=== PATIENT | male | born 1960 | race African-American/Black ===

== ENCOUNTER 2016-10-22 06:09 | Inpatient (IN) | payer MEDICARE, MEDICAID ==
[~2016-10-22] VITALS: Ht 170.2 cm; Wt 62.6 kg
[2016-10-22] MEDS ORDERED: AMLO2.5T45 PO (06:17)
[2016-10-22] MEDS ORDERED: MORP15TA67 PO (06:18)
[2016-10-22] MEDS ORDERED: ONDANSETRON HCL 4MG/2ML VIAL IV STA (06:23)
[2016-10-22] MEDS ORDERED: MORPHINE SULFATE 4 MG/ML CPJ (NOT FOR IM USE) IV STA (06:23)
[2016-10-22] MEDS ORDERED: SODIUM CHLORIDE 0.9% 1,000 ML IV ONE (06:27)
[2016-10-22 06:56] LABS: HEMATOCRIT. 23.4 % (42.0-52.0); HEMOGLOBIN. 7.5 g/dL (14.0-18.0); MEAN CORPUSCULAR VOLUME 81.4 fL (80.0-94.0); PLATELET 732 x1000/uL (130-400); RED BLOOD CELL COUNT 2.87 mill/uL (4.7-6.1); RED CELL DISTRIBUTION WIDTH 18.5 % (11.6-14.6)
[2016-10-22 07:01] LABS: INR 1.1; PARTIAL THROMBOPLASTIN TIME 28.1 sec (24.0-34.0)
[2016-10-22 07:06] LABS: CARBON DIOXIDE 28 mEq/L (21-32); CHLORIDE 106 mEq/L (98-107); TROPONIN I < 0.02 ng/mL (0.00-0.04)
[2016-10-22] MEDS ORDERED: LEVOFLOXACIN 750MG PREMIX 150 ML IV ONE (07:15)
[2016-10-22 07:28] LABS: PLATELET ESTIMATE INCREASED
[2016-10-22] MEDS ORDERED: CLONIDINE 0.1MG TABLET PO PRN (09:45)
[2016-10-22] MEDS ORDERED: IPRATROPIUM/ALBUTEROL 0.5-3(2.5)MG/3ML NEB INH PRN (09:45)
[2016-10-22] MEDS ORDERED: LORAZEPAM 2MG/ML CPJ IV PRN (09:45)
[2016-10-22] MEDS ORDERED: NA PHOS,M-B/NA PHOS,DI-BA ENEMA 118ML PR PRN (09:45)
[2016-10-22] MEDS ORDERED: HYDROCODONE/ACETAMINOPHEN 5/325MG TABLET PO PRN (09:45)
[2016-10-22] MEDS ORDERED: FUROSEMIDE 20MG/2ML VIAL IVP SCH (09:45)
[2016-10-22] MEDS ORDERED: ONDANSETRON HCL 4MG/2ML VIAL IV PRN (09:45)
[2016-10-22] MEDS ORDERED: DOCUSATE SODIUM 100MG CAPSULE PO PRN (09:45)
[2016-10-22] MEDS ORDERED: GUAIFENESIN 200MG/10ML SUGAR FREE UDC PO PRN (09:45)
[2016-10-22] MEDS ORDERED: MAGNESIUM/ALUMINUM HYDROXIDE/SIMETHICONE 30ML UDC PO PRN (09:45)
[2016-10-22] MEDS ORDERED: ACETAMINOPHEN 325MG TABLET PO PRN (09:45)
[2016-10-22 09:49] LABS: CLARITY URINE CLEAR (CLEAR); COLOR URINE YELLOW (YELLOW); KETONES URINE NEGATIVE (NEGATIVE); LEUKOCYTE ESTERASE URINE NEGATIVE (NEGATIVE); NITRITE URINE NEGATIVE (NEGATIVE); OCCULT BLOOD URINE NEGATIVE (NEGATIVE); PH URINE 5.5 (4.5-8.0); PROTEIN URINE NEGATIVE (NEGATIVE); SPECIFIC GRAVITY URINE 1.039 (1.005-1.030)
[2016-10-22 10:07] LABS: *AMPHETAMINES SCREEN URINE NEGATIVE (NEGATIVE); *BARBITURATES SCREEN URINE NEGATIVE (NEGATIVE); *BENZODIAZEPINES SCREEN URINE NEGATIVE (NEGATIVE); *COCAINE SCREEN URINE NEGATIVE (NEGATIVE); CANNABINOID URINE SCREEN NEGATIVE (NEGATIVE); METHADONE URINE SCREEN NEGATIVE (NEGATIVE); OPIATES URINE SCREEN PRESUMTIVE POSITIVE (NEGATIVE); PHENCYCLIDINE URINE SCREEN NEGATIVE (NEGATIVE)
[2016-10-22 11:51] LABS: CARBON DIOXIDE 30 mEq/L (21-32); CHLORIDE 105 mEq/L (98-107)
[2016-10-22] MEDS: PIPERACILLIN/TAZ 3.375G PREMIX 50 ML IV SCH ×2 (14:00→22:05)
[2016-10-22] MEDS ORDERED: SODIUM CHLORIDE 0.9% 10ML VIAL ONE (14:01)
[2016-10-22] MEDS ORDERED: IOHEXOL-300 100 ML BOTTLE ONE (14:01)
[2016-10-22] MEDS: HYDROMORPHONE HCL/PF 2MG/ML CPJ IV PRN ×2 (14:03→17:40)
[2016-10-22] MEDS: ENOXAPARIN 40MG/0.4ML SYR SUBCUT SCH (14:58)
[2016-10-23] MEDS: HYDROMORPHONE HCL/PF 2MG/ML CPJ IV PRN ×9 (00:11→22:48)
[2016-10-23] MEDS: PIPERACILLIN/TAZ 3.375G PREMIX 50 ML IV SCH ×4 (03:12→21:59)
[2016-10-23 03:30] LABS: CHLORIDE 105 mEq/L (98-107)
[2016-10-23 03:45] LABS: CARBON DIOXIDE 27 mEq/L (21-32); HDL CHOLESTEROL 28 mg/dL (40-59); LDL CHOLESTEROL 75 mg/dL (5-100); T4 FREE 1.25 ng/dL (0.76-1.46)
[2016-10-23] MEDS: LEVOFLOXACIN 500MG PREMIX 100 ML IV SCH (08:49)
[2016-10-23] MEDS: FUROSEMIDE 40MG/4ML VIAL IV SCH (08:49)
[2016-10-23] MEDS: AMLODIPINE 2.5MG TABLET PO SCH (08:49)
[2016-10-23] MEDS: ASPIRIN 81MG EC TABLET PO SCH (08:50)
[2016-10-23 09:37] LABS: HEMATOCRIT. 30.4 % (42.0-52.0); HEMOGLOBIN. 9.9 g/dL (14.0-18.0); MEAN CORPUSCULAR HEMOGLOBIN 27.3 pg (28.0-32.0); MEAN CORPUSCULAR VOLUME 83.8 fL (80.0-94.0); MEAN PLATELET VOLUME 6.9 fl (7.4-10.4); PLATELET 755 x1000/uL (130-400); RED BLOOD CELL COUNT 3.63 mill/uL (4.7-6.1); RED CELL DISTRIBUTION WIDTH 17.8 % (11.6-14.6)
[2016-10-23 09:50] LABS: T4 FREE 1.27 ng/dL (0.76-1.46)
[2016-10-23] MEDS ORDERED: SODIUM CHLORIDE 0.9% 10ML VIAL ONE (10:21)
[2016-10-23] MEDS ORDERED: IOHEXOL-350 100 ML BOTTLE ONE (10:21)
[2016-10-23 11:13] LABS: PLATELET ESTIMATE INCREASED
[2016-10-23] MEDS: ENOXAPARIN 40MG/0.4ML SYR SUBCUT SCH (12:00)
[2016-10-23 16:06] LABS: CREATINE KINASE 27 IU/L (39-308); TROPONIN I < 0.02 ng/mL (0.00-0.04)
[2016-10-23 16:07] LABS: CREATINE KINASE MB FRACTION 0.5 ng/mL (0.5-3.6)
[2016-10-23] MEDS: ENOXAPARIN 80MG/0.8ML SYR SUBCUT SCH (20:54)
[2016-10-24 00:15] LABS: CREATINE KINASE 25 IU/L (39-308); CREATINE KINASE MB FRACTION < 0.5 ng/mL (0.5-3.6); TROPONIN I < 0.02 ng/mL (0.00-0.04)
[2016-10-24] MEDS: HYDROMORPHONE HCL/PF 2MG/ML CPJ IV PRN ×11 (01:21→22:23)
[2016-10-24] MEDS: PIPERACILLIN/TAZ 3.375G PREMIX 50 ML IV SCH ×4 (04:36→21:48)
[2016-10-24 06:50] LABS: CREATINE KINASE 25 IU/L (39-308); CREATINE KINASE MB FRACTION < 0.5 ng/mL (0.5-3.6); TROPONIN I < 0.02 ng/mL (0.00-0.04)
[2016-10-24 07:12] LABS: HEMATOCRIT. 27.5 % (42.0-52.0); HEMOGLOBIN. 8.9 g/dL (14.0-18.0); MEAN CORPUSCULAR HEMOGLOBIN 27.1 pg (28.0-32.0); MEAN CORPUSCULAR VOLUME 83.4 fL (80.0-94.0); MEAN PLATELET VOLUME 7.2 fl (7.4-10.4); PLATELET 846 x1000/uL (130-400); RED BLOOD CELL COUNT 3.29 mill/uL (4.7-6.1); RED CELL DISTRIBUTION WIDTH 17.9 % (11.6-14.6)
[2016-10-24] MEDS: FUROSEMIDE 40MG/4ML VIAL IV SCH (09:34)
[2016-10-24] MEDS: ASPIRIN 81MG EC TABLET PO SCH (09:34)
[2016-10-24] MEDS: AMLODIPINE 2.5MG TABLET PO SCH (09:35)
[2016-10-24] MEDS: ENOXAPARIN 80MG/0.8ML SYR SUBCUT SCH ×2 (09:44→21:49)
[2016-10-24 09:54] LABS: PLATELET ESTIMATE MARKEDLY INCREASED
[2016-10-24] MEDS: LEVOFLOXACIN 500MG PREMIX 100 ML IV SCH (11:05)
[2016-10-25] MEDS: HYDROMORPHONE HCL/PF 2MG/ML CPJ IV PRN ×12 (00:04→22:14)
[2016-10-25] MEDS: PIPERACILLIN/TAZ 3.375G PREMIX 50 ML IV SCH ×5 (03:56→22:17)
[2016-10-25 07:06] LABS: HEMATOCRIT. 28.6 % (42.0-52.0); HEMOGLOBIN. 9.3 g/dL (14.0-18.0); MEAN CORPUSCULAR HEMOGLOBIN 27.2 pg (28.0-32.0); MEAN CORPUSCULAR VOLUME 83.6 fL (80.0-94.0); MEAN PLATELET VOLUME 7.3 fl (7.4-10.4); PLATELET 928 x1000/uL (130-400); RED BLOOD CELL COUNT 3.43 mill/uL (4.7-6.1); RED CELL DISTRIBUTION WIDTH 17.8 % (11.6-14.6)
[2016-10-25 07:07] LABS: CHLORIDE 101 mEq/L (98-107)
[2016-10-25 07:22] LABS: CARBON DIOXIDE 28 mEq/L (21-32)
[2016-10-25] MEDS: AMLODIPINE 2.5MG TABLET PO SCH (09:59)
[2016-10-25] MEDS: ASPIRIN 81MG EC TABLET PO SCH (09:59)
[2016-10-25] MEDS: FUROSEMIDE 40MG/4ML VIAL IV SCH (09:59)
[2016-10-25] MEDS: ENOXAPARIN 80MG/0.8ML SYR SUBCUT SCH ×2 (10:00→22:19)
[2016-10-26] MEDS: HYDROMORPHONE HCL/PF 2MG/ML CPJ IV PRN ×11 (00:21→22:01)
[2016-10-26] MEDS: PIPERACILLIN/TAZ 3.375G PREMIX 50 ML IV SCH ×3 (04:28→18:05)
[2016-10-26 07:20] LABS: HEMATOCRIT. 30.5 % (42.0-52.0); HEMOGLOBIN. 9.7 g/dL (14.0-18.0); MEAN CORPUSCULAR HEMOGLOBIN 26.3 pg (28.0-32.0); MEAN PLATELET VOLUME 6.9 fl (7.4-10.4); PLATELET 955 x1000/uL (130-400); RED BLOOD CELL COUNT 3.68 mill/uL (4.7-6.1); RED CELL DISTRIBUTION WIDTH 18.2 % (11.6-14.6)
[2016-10-26 07:36] LABS: CARBON DIOXIDE 27 mEq/L (21-32); CHLORIDE 102 mEq/L (98-107)
[2016-10-26 07:54] LABS: PLATELET ESTIMATE MARKEDLY INCREASED
[2016-10-26] MEDS: FUROSEMIDE 40MG/4ML VIAL IV SCH (08:40)
[2016-10-26] MEDS: ASPIRIN 81MG EC TABLET PO SCH (08:40)
[2016-10-26] MEDS: AMLODIPINE 2.5MG TABLET PO SCH (08:41)
[2016-10-26] MEDS: ENOXAPARIN 80MG/0.8ML SYR SUBCUT SCH ×2 (08:42→20:06)
[2016-10-26 10:25] LABS: PLATELET ESTIMATE MARKEDLY INCREASED
[2016-10-27] MEDS: HYDROMORPHONE HCL/PF 2MG/ML CPJ IV PRN ×5 (00:40→08:57)
[2016-10-27] MEDS: PIPERACILLIN/TAZ 3.375G PREMIX 50 ML IV SCH ×2 (00:40→05:01)
[2016-10-27 06:47] LABS: CARBON DIOXIDE 29 mEq/L (21-32); CHLORIDE 101 mEq/L (98-107)
[2016-10-27 07:08] LABS: HEMATOCRIT. 30.8 % (42.0-52.0); MEAN CORPUSCULAR HEMOGLOBIN 26.9 pg (28.0-32.0); MEAN CORPUSCULAR VOLUME 83.1 fL (80.0-94.0); MEAN PLATELET VOLUME 7.3 fl (7.4-10.4); PLATELET 934 x1000/uL (130-400); RED BLOOD CELL COUNT 3.71 mill/uL (4.7-6.1); RED CELL DISTRIBUTION WIDTH 17.5 % (11.6-14.6)
[2016-10-27] MEDS: AMLODIPINE 2.5MG TABLET PO SCH (08:28)
[2016-10-27] MEDS: FUROSEMIDE 40MG/4ML VIAL IV SCH (08:29)
[2016-10-27] MEDS: ASPIRIN 81MG EC TABLET PO SCH (08:29)
[2016-10-27] MEDS: ENOXAPARIN 80MG/0.8ML SYR SUBCUT SCH (08:37)
[2016-10-27] MEDS ORDERED: HYDROCODONE/ACETAMINOPHEN 5/325MG TABLET PO PRN (11:15)
[2016-10-27] MEDS ORDERED: HYDROMORPHONE HCL/PF 2MG/ML CPJ IV NR (11:15)
[2016-10-27 13:24] VITALS: BP 117/82
[2016-10-27 13:37] LABS: PLATELET ESTIMATE MARKEDLY INCREASED
[2016-10-27] MEDS ORDERED: ENOXAPARIN 60MG/0.6ML SYR SUBCUT SCH (21:00)
[2016-12-10] MEDS ORDERED: ATROPINE PO (00:44)
[2016-12-10] MEDS ORDERED: LEVO500T89 PO (00:44)
[2016-12-10] MEDS ORDERED: LORA1TAB PO (00:44)
[2016-12-10] MEDS ORDERED: HYDR4TAB4 PO (00:44)
[2016-12-10] MEDS ORDERED: DOCU-138 PO (01:07)
== END 2016-10-27 13:30 | disposition home or self-care (01) | DRG 871 ==
LOC: ER 06:20 → 6WST 08:41 → EDBEDREQ 08:43 → ENRESERV 08:46 → CANRESERV 08:47 → 6WST 10-25 23:30
PROVIDERS: ADMIT Internal Medicine; ATTEND Internal Medicine
PROC: 30233N1 Transfusion of Nonautologous Red Blood Cells into Peripheral Vein, Percutaneous Approach (ICD-10-PCS; principal; 2016-10-23)
DX: A41.9 Sepsis, unspecified organism (principal); J96.00 Acute respiratory failure, unspecified whether with hypoxia or hypercapnia; E43 Unspecified severe protein-calorie malnutrition; I26.99 Other pulmonary embolism without acute cor pulmonale; J18.9 Pneumonia, unspecified organism; C34.90 Malignant neoplasm of unspecified part of unspecified bronchus or lung; C78.7 Secondary malignant neoplasm of liver and intrahepatic bile duct; I82.409 Acute embolism and thrombosis of unspecified deep veins of unspecified lower extremity; R65.10 Systemic inflammatory response syndrome (SIRS) of non-infectious origin without acute organ dysfunction; M19.90 Unspecified osteoarthritis, unspecified site; I27.2 Other secondary pulmonary hypertension; I25.10 Atherosclerotic heart disease of native coronary artery without angina pectoris; I50.9 Heart failure, unspecified; I11.0 Hypertensive heart disease with heart failure; R16.0 Hepatomegaly, not elsewhere classified; E78.00 Pure hypercholesterolemia, unspecified; D47.3 Essential (hemorrhagic) thrombocythemia; D64.9 Anemia, unspecified; Z60.2 Problems related to living alone; K59.00 Constipation, unspecified; Z82.61 Family history of arthritis; Z92.3 Personal history of irradiation; Z68.25 Body mass index [BMI] 25.0-25.9, adult; Z87.891 Personal history of nicotine dependence; Z92.21 Personal history of antineoplastic chemotherapy; Z85.819 Personal history of malignant neoplasm of unspecified site of lip, oral cavity, and pharynx; Z83.3 Family history of diabetes mellitus; Z79.899 Other long term (current) drug therapy; Z88.8 Allergy status to other drugs, medicaments and biological substances; Z79.01 Long term (current) use of anticoagulants; Z68.21 Body mass index [BMI] 21.0-21.9, adult
CPT/HCPCS: 36415; 71010; 71260; 71275; 73562; 74177; 80048; 80053; 80061; 80305; 81003; 82550; 82553; 83036; 83605; 83690; 83880; 84439; 84443; 84484; 85025; 85379; 85610; 85730; 86850; 86900; 86920; 87040; 87086; 93005; 93306; 93970; 96365; 96375; 99291; A4216; J1170; J1650; J1940; J1956; J2270; J2405; J2543; J7030; J7050; P9016; Q9967

== ENCOUNTER 2016-11-18 07:38 | Inpatient (IN) | payer MEDICARE, MEDICAID ==
[~2016-11-18] VITALS: Ht 165.1 cm; Wt 60.5 kg
[~2016-11-18 07:38] MED LIST: AMLO2.5T45 PO; MORP15TA67 PO
[2016-11-18 13:10] VITALS: BP 123/81
[2016-11-18] MEDS ORDERED: IPRATROPIUM/ALBUTEROL 0.5-3(2.5)MG/3ML NEB HHN PRN (15:00)
[2016-11-18] MEDS ORDERED: ONDANSETRON HCL 4MG/2ML VIAL IV PRN (15:00)
[2016-11-18] MEDS ORDERED: HYDROCODONE/ACETAMINOPHEN 10/325MG TABLET PO PRN (15:00)
[2016-11-18] MEDS ORDERED: ACETAMINOPHEN 325MG TABLET PO PRN (15:00)
[2016-11-18] MEDS ORDERED: MAGNESIUM/ALUMINUM HYDROXIDE/SIMETHICONE 30ML UDC PO PRN (15:00)
[2016-11-18] MEDS ORDERED: CLONIDINE 0.2MG TABLET PO PRN (15:00)
[2016-11-18] MEDS: SODIUM CHLORIDE 0.45% 1,000 ML IV SCH (15:37)
[2016-11-18] MEDS: HYDROMORPHONE HCL/PF 2MG/ML CPJ IV PRN ×2 (15:46→20:08)
[2016-11-18 16:00] VITALS: BP_SYST 127; BP_SYST 137; BP_DIAS 91; BP_DIAS 99
[2016-11-18 16:47] LABS: HEMATOCRIT. 29.2 % (42.0-52.0); HEMOGLOBIN. 9.3 g/dL (14.0-18.0); MEAN CORPUSCULAR HEMOGLOBIN 26.3 pg (28.0-32.0); MEAN CORPUSCULAR VOLUME 82.6 fL (80.0-94.0); MEAN PLATELET VOLUME 8.2 fl (7.4-10.4); PLATELET 529 x1000/uL (130-400); RED BLOOD CELL COUNT 3.54 mill/uL (4.7-6.1); RED CELL DISTRIBUTION WIDTH 18.8 % (11.6-14.6)
[2016-11-18 16:53] LABS: CHLORIDE 102 mEq/L (98-107)
[2016-11-18 17:03] LABS: CARBON DIOXIDE 30 mEq/L (21-32); CREATINE KINASE 46 IU/L (39-308); CREATINE KINASE MB FRACTION 0.6 ng/mL (0.5-3.6); TROPONIN I < 0.02 ng/mL (0.00-0.04)
[2016-11-18 17:40] LABS: PLATELET ESTIMATE INCREASED
[2016-11-18] MEDS ORDERED: ENOXAPARIN 40MG/0.4ML SYR SUBCUT SCH (18:00)
[2016-11-18] MEDS ORDERED: RIVAROXABAN 15 MG TABLET PO SCH (19:15)
[2016-11-18 20:00] VITALS: BP 111/82
[2016-11-18] MEDS: LEVOFLOXACIN 500MG PREMIX 100 ML IV SCH (20:08)
[2016-11-18 21:42] LABS: INR 1.2; PROTHROMBIN TIME 12.4 sec
[2016-11-19] VITALS: BP 136/98
[2016-11-19] MEDS: HYDROMORPHONE HCL/PF 2MG/ML CPJ IV PRN ×6 (00:31→21:06)
[2016-11-19 04:00] VITALS: BP 140/96
[2016-11-19] MEDS: SODIUM CHLORIDE 0.45% 1,000 ML IV SCH ×2 (04:50→17:50)
[2016-11-19 06:35] LABS: CHLORIDE 101 mEq/L (98-107)
[2016-11-19 06:44] LABS: CARBON DIOXIDE 23 mEq/L (21-32)
[2016-11-19 06:45] LABS: CREATINE KINASE 48 IU/L (39-308); CREATINE KINASE MB FRACTION 0.6 ng/mL (0.5-3.6); TROPONIN I < 0.02 ng/mL (0.00-0.04)
[2016-11-19] MEDS: OMEPRAZOLE 20MG CAPSULE EXTENDED RELEASE PO SCH ×2 (08:22→17:50)
[2016-11-19] MEDS: AMLODIPINE 2.5MG TABLET PO SCH (08:22)
[2016-11-19 08:23] VITALS: BP 135/93
[2016-11-19 08:52] LABS: HEMATOCRIT 27.5 % (42.0-52.0); MEAN CORPUSCULAR VOLUME 82.8 fL (80.0-94.0); PLATELET 563 x1000/uL (130-400); RED BLOOD CELL COUNT 3.32 mill/uL (4.7-6.1)
[2016-11-19 11:40] VITALS: BP 110/79
[2016-11-19] MEDS ORDERED: RIVAROXABAN 20 MG TABLET PO SCH (17:00)
[2016-11-19 17:04] VITALS: BP 128/90
[2016-11-19 20:00] VITALS: BP 123/84
[2016-11-19] MEDS: LEVOFLOXACIN 500MG PREMIX 100 ML IV SCH (21:06)
[2016-11-20] VITALS: BP 126/70
[2016-11-20] MEDS: HYDROMORPHONE HCL/PF 2MG/ML CPJ IV PRN ×6 (01:04→21:16)
[2016-11-20 04:00] VITALS: BP 136/79
[2016-11-20 06:18] LABS: CHLORIDE 101 mEq/L (98-107)
[2016-11-20 06:36] LABS: HEMATOCRIT. 24.8 % (42.0-52.0); HEMOGLOBIN. 7.9 g/dL (14.0-18.0); MEAN CORPUSCULAR HEMOGLOBIN 26.3 pg (28.0-32.0); MEAN CORPUSCULAR VOLUME 82.7 fL (80.0-94.0); MEAN PLATELET VOLUME 7.9 fl (7.4-10.4); PLATELET 522 x1000/uL (130-400); RED BLOOD CELL COUNT 2.99 mill/uL (4.7-6.1); RED CELL DISTRIBUTION WIDTH 18.5 % (11.6-14.6)
[2016-11-20] MEDS: SODIUM CHLORIDE 0.45% 1,000 ML IV SCH (06:43)
[2016-11-20 06:46] LABS: CARBON DIOXIDE 23 mEq/L (21-32)
[2016-11-20 07:16] VITALS: BP 134/90
[2016-11-20] MEDS: OMEPRAZOLE 20MG CAPSULE EXTENDED RELEASE PO SCH (07:40)
[2016-11-20 07:53] LABS: PLATELET ESTIMATE INCREASED
[2016-11-20] MEDS: AMLODIPINE 2.5MG TABLET PO SCH (09:19)
[2016-11-20 11:17] VITALS: BP 112/75
[2016-11-20 13:35] LABS: HEMATOCRIT 26.9 % (42.0-52.0); HEMOGLOBIN 8.3 g/dL (14.0-18.0)
[2016-11-20 15:40] VITALS: BP 139/97
[2016-11-20] MEDS: LEVOFLOXACIN 500MG PREMIX 100 ML IV SCH (19:54)
[2016-11-20 20:00] VITALS: BP 109/74
[2016-11-21 00:17] VITALS: BP 126/85
[2016-11-21] MEDS: HYDROMORPHONE HCL/PF 2MG/ML CPJ IV PRN ×6 (01:19→21:04)
[2016-11-21 04:00] VITALS: BP 121/85
[2016-11-21 05:40] LABS: HEMATOCRIT. 25.8 % (42.0-52.0); HEMOGLOBIN. 8.1 g/dL (14.0-18.0); MEAN CORPUSCULAR HEMOGLOBIN 26.3 pg (28.0-32.0); MEAN CORPUSCULAR VOLUME 83.3 fL (80.0-94.0); MEAN PLATELET VOLUME 8.1 fl (7.4-10.4); PLATELET 471 x1000/uL (130-400); RED BLOOD CELL COUNT 3.09 mill/uL (4.7-6.1); RED CELL DISTRIBUTION WIDTH 18.7 % (11.6-14.6)
[2016-11-21 05:59] LABS: CARBON DIOXIDE 23 mEq/L (21-32); CHLORIDE 102 mEq/L (98-107)
[2016-11-21 08:00] VITALS: BP 153/84
[2016-11-21] MEDS: AMLODIPINE 2.5MG TABLET PO SCH (08:36)
[2016-11-21 12:00] VITALS: BP 113/72
[2016-11-21 12:57] LABS: PLATELET ESTIMATE NORMAL
[2016-11-21 16:00] VITALS: BP 125/73
[2016-11-21 20:04] VITALS: BP 107/64
[2016-11-21] MEDS: LEVOFLOXACIN 500MG PREMIX 100 ML IV SCH (21:03)
[2016-11-22] VITALS (16 sets, daily range): BP systolic 110–133; BP diastolic 72–90
[2016-11-22] MEDS: HYDROMORPHONE HCL/PF 2MG/ML CPJ IV PRN ×6 (00:58→20:33)
[2016-11-22 07:03] LABS: HEMATOCRIT. 22.2 % (42.0-52.0); MEAN CORPUSCULAR HEMOGLOBIN 25.6 pg (28.0-32.0); MEAN CORPUSCULAR VOLUME 82.5 fL (80.0-94.0); MEAN PLATELET VOLUME 7.2 fl (7.4-10.4); PLATELET 492 x1000/uL (130-400); RED BLOOD CELL COUNT 2.69 mill/uL (4.7-6.1); RED CELL DISTRIBUTION WIDTH 18.9 % (11.6-14.6)
[2016-11-22 07:15] LABS: HEMOGLOBIN. 6.9 g/dL (14.0-18.0)
[2016-11-22 07:40] LABS: CARBON DIOXIDE 29 mEq/L (21-32); CHLORIDE 102 mEq/L (98-107)
[2016-11-22] MEDS: AMLODIPINE 2.5MG TABLET PO SCH (09:00)
[2016-11-22 14:36] LABS: PLATELET ESTIMATE INCREASED
[2016-11-22] MEDS: LEVOFLOXACIN 500MG PREMIX 100 ML IV SCH (20:33)
[2016-11-23 00:05] VITALS: BP 111/77
[2016-11-23] MEDS: HYDROMORPHONE HCL/PF 2MG/ML CPJ IV PRN ×4 (00:25→13:57)
[2016-11-23 04:00] VITALS: BP 145/88
[2016-11-23 05:57] LABS: HEMATOCRIT. 28.6 % (42.0-52.0); HEMOGLOBIN. 9.2 g/dL (14.0-18.0); MEAN PLATELET VOLUME 7.8 fl (7.4-10.4); PLATELET 517 x1000/uL (130-400); RED BLOOD CELL COUNT 3.41 mill/uL (4.7-6.1); RED CELL DISTRIBUTION WIDTH 17.8 % (11.6-14.6)
[2016-11-23 06:40] LABS: CARBON DIOXIDE 29 mEq/L (21-32); CHLORIDE 102 mEq/L (98-107)
[2016-11-23 08:00] VITALS: BP 137/89
[2016-11-23 08:14] LABS: PLATELET ESTIMATE INCREASED
[2016-11-23] MEDS: AMLODIPINE 2.5MG TABLET PO SCH (08:19)
[2016-11-23 12:00] VITALS: BP 129/88
[2016-11-23 15:15] VITALS: BP 129/88
[2016-11-23 16:00] VITALS: BP 127/82
== END 2016-11-23 16:53 | disposition hospice, home (50) | DRG 177 ==
LOC: 7WST 07:38
PROVIDERS: ADMIT Internal Medicine; ATTEND Internal Medicine
PROC: 30233N1 Transfusion of Nonautologous Red Blood Cells into Peripheral Vein, Percutaneous Approach (ICD-10-PCS; principal; 2016-11-22)
DX: J69.0 Pneumonitis due to inhalation of food and vomit (principal); J96.00 Acute respiratory failure, unspecified whether with hypoxia or hypercapnia; E43 Unspecified severe protein-calorie malnutrition; R65.10 Systemic inflammatory response syndrome (SIRS) of non-infectious origin without acute organ dysfunction; R64 Cachexia; E86.0 Dehydration; G89.3 Neoplasm related pain (acute) (chronic); D64.9 Anemia, unspecified; I10 Essential (primary) hypertension; E03.9 Hypothyroidism, unspecified; C76.0 Malignant neoplasm of head, face and neck; I11.0 Hypertensive heart disease with heart failure; I25.10 Atherosclerotic heart disease of native coronary artery without angina pectoris; I48.91 Unspecified atrial fibrillation; I50.9 Heart failure, unspecified; J44.9 Chronic obstructive pulmonary disease, unspecified; Z66 Do not resuscitate; Z86.711 Personal history of pulmonary embolism; Z86.718 Personal history of other venous thrombosis and embolism; Z92.3 Personal history of irradiation; Z93.0 Tracheostomy status; Z79.01 Long term (current) use of anticoagulants; Z68.22 Body mass index [BMI] 22.0-22.9, adult; Z92.21 Personal history of antineoplastic chemotherapy; Z85.89 Personal history of malignant neoplasm of other organs and systems; R91.8 Other nonspecific abnormal finding of lung field
CPT/HCPCS: 36415; 71010; 80048; 80076; 82270; 82550; 82553; 82962; 83735; 84443; 84484; 85014; 85018; 85025; 85027; 85610; 86850; 86900; 86920; 87040; 93005; 93306; 97162; 97166; 97530; 97535; J1170; J1650; J1956; J7050; P9016